=== PATIENT | male | born 1990 | race African-American/Black ===

== ENCOUNTER 2017-03-21 08:36 | Emergency (ER) | payer OTHER ==
[~2017-03-21] VITALS: Ht 170.2 cm; Wt 81.5 kg
[2017-03-21 08:39] VITALS: BP 133/75; PULSE 84; RESP 15; TEMP 98.1; O2SAT 100
[2017-03-21] MEDS ORDERED: LIDOCAINE HCL 1% 50 ML VIAL INFIL ONE (09:00)
[2017-03-21] MEDS ORDERED: ACETAMINOPHEN/HYDROcodone 325 MG/5 MG TAB PO ONE (09:00)
[2017-03-21] MEDS ORDERED: CEPH-460 PO (09:10)
[2017-03-21] MEDS ORDERED: BACT800T5 PO (09:10)
--- NOTE | 2017-03-21 09:10 | PD ---
HPI Chief Complaint: Skin Problem Time Seen by Provider: 08:45 Travel History International Travel<30 days: No Contact w/Intl Traveler<30days: No Traveled to known affect area: No History of Present Illness HPI Patient is a 26-year-old male who comes in complaining of pain and swelling to his right arm. He says he had what seemed like a blister that started night. He says that his popped it on Wednesday, but it became more swollen and painful yesterday. He denies any fever or chills. He has no medical problems. He denies IV drug abuse. He has no pain with bending or straightening his elbow. [facility] Social History Alcohol Use: Yes Tobacco Use: No Allergies-Medications (Allergen,Severity, Reaction): Coded Allergies: No Known Allergies (Unverified , 03/21/17) Reported Meds & Prescriptions Reported Meds & Active Scripts Active Keflex (Cephalexin) 500 Mg Capsule 500 Mg PO Q6H 7 Days Bactrim DS (Sulfamethoxazole-Trimethoprim) 800-160 Mg Tab 1 Tab PO BID Review of Systems Except as stated in HPI: all other systems reviewed are Neg General / Constitutional: No: Fever, Chills HENT: No: Headaches, Lightheadedness Cardiovascular: No: Chest Pain or Discomfort Respiratory: No: Shortness of Breath Gastrointestinal: No: Nausea, Vomiting Musculoskeletal: No: Arthralgias, Edema, Pain Skin: Positive Rash, Positive Lesions Neurologic: No: Weakness, Dizziness Physical Exam Narrative GENERAL: Awake and alert, in no acute distress. SKIN: Focused skin assessment warm/dry. 3 cm fluctuant abscess just distal to the right elbow. Minimal surrounding erythema and warmth. HEAD: Atraumatic. Normocephalic. EYES: Pupils equal and round. No scleral icterus. No injection or drainage. ENT: Mucous membranes pink and moist. NECK: Trachea midline. No JVD. CARDIOVASCULAR: Regular rate and rhythm. No murmur appreciated. RESPIRATORY: No accessory muscle use. Clear to auscultation. Breath sounds equal bilaterally. MUSCULOSKELETAL: No obvious deformities. No clubbing. No cyanosis. No edema. No erythema or warmth of the right elbow joint. No pain with flexion or extension of the right elbow. NEUROLOGICAL: Awake and alert. No obvious cranial nerve deficits. Motor grossly within normal limits. Normal speech. PSYCHIATRIC: Appropriate mood and affect; insight and judgment normal. Data Data Last Documented VS Vital Signs Date Time Temp Pulse Resp B/P Pulse Ox O2 Delivery O2 Flow Rate FiO2 03/21/17 08:49 18 03/21/17 08:39 98.1 84 133/75 100 Orders Acetamin-Hydrocod 325-5 Mg ([place] 5-325 (03/21/17 09:00) Lidocaine 1% Inj (50 Ml) (Xylocaine 1% I (03/21/17 09:00) MDM Medical Decision Making Medical Screen Exam Complete: Yes Emergency Medical Condition: Yes Differential Diagnosis Abscess versus cellulitis versus folliculitis Narrative Course Patient is a 26-year-old male comes in complaining of a painful boil to his right arm. Exam shows a 3 cm fluctuant abscess just distal to the elbow. Patient given pain medicine. The abscess was drained. Discharge with prescriptions for Bactrim and Keflex. Advised to keep the area clean and dry. Advised to return to the ED as needed for any worsening symptoms. Procedures Procedure Narrative INCISION AND DRAINAGE OF ABSCESS: The area was prepped and was sterilely draped. A subcutaneous wheal of 1 % Xylocaine with a total number 6 mL was used to anesthetize the area properly. A number 11 scalpel was used to make a 1 -cm incision across the area of the abscess. The abscess was drained, complex loculations were broken down, and irrigated with normal saline. Sterile dressing applied. Diagnosis Primary Impression: Abscess Additional Impression: Cellulitis Qualified Code: L03.113 - Cellulitis of right upper extremity Patient Instructions: Abscess Incision and Drainage (ED), General Instructions Additional Instructions: Keep the area clean and dry. Take all of your antibiotics. Return to the ED as needed for any worsening symptoms. Scripts Hydrocodone-Acetaminophen (Lortab)5-325 Mg Tab1 Tab PO Q6H PRN (PAIN) #5 TAB Ref 0 Prov:Nimisha Toth MD 03/21/17 Cephalexin (Keflex)500 Mg [id number] Mg PO Q6H 7 Days Ref 0 Prov:Nimisha Toth MD 03/21/17 Sulfamethoxazole-Trimethoprim (Bactrim DS)800-160 Mg Tab1 Tab PO BID #14 TAB Ref 0 Prov:Nimisha Toth MD 03/21/17 Disposition: 01 DISCHARGE HOME Condition: Stable Nimisha Toth MD Mar 21, 2017 09:10
[2017-03-21] MEDS ORDERED: HYDR-3533 PO (09:28)
== END 2017-03-21 09:36 | disposition home or self-care (01) ==
LOC: NEPE 08:36
DX: L02.413 Cutaneous abscess of right upper limb (principal); L03.113 Cellulitis of right upper limb; Z79.899 Other long term (current) drug therapy
CPT/HCPCS: 10060